=== PATIENT | male | born 1995 | race Caucasian/White ===

== ENCOUNTER 2016-12-13 20:40 | Emergency (ER) | payer BC ==
[~2016-12-13] VITALS: Ht 182.9 cm; Wt 84.0 kg
[2016-12-13 20:49] VITALS: TEMP 36.7; Ht 182.9 cm; Wt 84.0 kg
[2016-12-13] MEDS ORDERED: DOXY-300 PO (21:07)
--- NOTE | 2016-12-13 21:11 | DIAGNOSTIC IMAGING REPORT ---
RIGHT ANKLE MIN 3 VIEWS ROUTINE CLINICAL HISTORY: Lateral right ankle pain following basketball injury. COMPARISON: None FINDINGS: Alignment of the right ankle is anatomic. No definite acute fracture is present. There is moderate lateral ankle soft tissue swelling. There is no ankle mortise widening. 3 mm ossific density along the fibular tip is probably old. A small density overlying the dorsal aspect of the navicular is likely old as well. There is a tiny ossific density along the lateral aspect the medial malleolus which is age-indeterminate. IMPRESSION: 1. No definite acute fracture. A few tiny avulsed bone fragments. While age indeterminate, these are likely old. 2. Moderate lateral ankle soft tissue swelling. Electronically signed by: Adan Maciel M.D. 12/13/2016 9:09 PM Dictated Date/Time: 12/13/2016 9:07 PM
[2016-12-13 21:22] VITALS: BP 124/71; PULSE 87; O2SAT 98
--- NOTE | 2016-12-14 01:07 | EMERGENCY ROOM VISIT NOTE ---
ED Visit Note First contact with patient: 20:44 CHIEF COMPLAINT: Right ankle pain. HISTORY OF PRESENT ILLNESS: Mr. Thomas is a 21-year old white male who ambulates into the ED complaining of right lateral ankle pain. He reports approximately 2 hours ago he was playing basketball when he went up into the air and when he landed he landed on another layer's foot and rolled his right ankle. He reports since that time he has had moderate pain over the lateral aspect of the ankle and he has had difficulty walking. He is currently complaining of constant sharp pain over the lateral malleolus and the ligamentous structures inferior and posterior to the malleolus. He rates the pain a 8/10. Pain is nonradiating. Pain increases with weightbearing, ambulation and inversion. He has mild relief of his discomfort when he has not weightbearing. He has treated the pain with ice and ibuprofen prior to arrival at the hospital and has had no relief of pain. Associated with the pain is moderate swelling over the lateral ankle. He denies any associated hip or knee pain, medial ankle pain, foot pain, foot/ lower leg weakness/numbness/tingling. Additionally he does report he's had previous sprains/strains of the ankle but no fractures. REVIEW OF SYSTEMS: As noted above in History of Present Illness. PAST MEDICAL HISTORY: Patient denies. CURRENT MEDICATIONS: Doxycycline. ALLERGIES TO MEDICATIONS: Patient denies. SOCIAL HISTORY: Patient is currently in University student; he feels safe in his home environment; he denies tobacco use. PHYSICAL EXAM: Vital Signs: Date Time Temp Pulse Resp B/P Pulse Ox O2 Delivery O2 Flow Rate FiO2 12/13/16 21:22 87 18 124/71 98 12/13/16 20:49 36.7 93 18 132/68 97 Room Air General: 21 year old male in mild distress due to pain, nontoxic-appearing, afebrile and hemodynamically stable. Neurological: Awake, alert, oriented to person place and time. Answering questions appropriately and following commands. Skin: Warm dry and pink. No soft tissue injuries. Right Lower Extremity: No gross danica deformities. No tenderness in the hip or knee. Tenderness over the lateral malleolus and the surrounding ligamentous structures with moderate swelling but no bony deformity, bony crepitus or ecchymosis. No laxity on ligamentous testing. Throughout the foot the skin is pink and warm with brisk capillary refill. Able to distinguish light sensations through all dermatomes of the foot. ED COURSE: Patient is assessed as noted above. Right Ankle X-Rays: Was read by myself and shows no acute fractures or dislocations. Previous avulsion fractures were noted. Patient is given ice for pain, swelling and comfort; he was offered pain medications and refused.. Patient is placed in a gel splint and is instructed on crutch use. Patient is educated about his condition and instructed on his treatment plan; he verbalizes understanding and agreement with the our plan. CLINICAL IMPRESSION: Right ankle sprain. DISPOSITION: Patient is discharged to home in stable condition accompanied by friends; prior to departure he was reassessed and subjectively reported he was feeling better and rated his discomfort 2/10. PLAN: Comfort measures were discussed with the patient. Patient was encouraged to follow-up with an orthopedic physician if no better in 7 to 10 days. Patient was encouraged to return emergency department as needed for increasing pain or swelling, leg/foot weakness/numbness/tingling or any new/concerning symptoms.
== END 2016-12-13 21:28 | disposition home or self-care (01) ==
LOC: C.EDB 20:42 → C.EDD 21:28
DX: S93.491A Sprain of other ligament of right ankle, initial encounter (principal); X58.XXXA Exposure to other specified factors, initial encounter; Y93.67 Activity, basketball; Y92.310 Basketball court as the place of occurrence of the external cause; Y99.8 Other external cause status

== ENCOUNTER → 2016-12-22 | Outpatient (CLI) | payer BC ==
[~2016-12-22] MED LIST: DOXY-300 PO
--- NOTE | 2016-12-23 17:06 | DIAGNOSTIC IMAGING REPORT ---
LEFT ANKLE MRI HISTORY: Left ANKLE Weakness, lt KNEE Pain, peroneal NERVE COMP TECHNIQUE: Multiplanar multisequence MRI of the left ankle was performed without the use of intravenous contrast. COMPARISON STUDY: None. FINDINGS: No fracture or dislocation within the left ankle. Mild marrow edema along the medial malleolus. Mild nonspecific edema within the visualized flexor hallucis longus and extensor digitorum muscles. The flexor, extensor, peroneal, and Achilles tendon are normal in course, caliber, and signal intensity. No significant joint effusion. The sinus tarsi is intact. Plantar fascia is maintained. The anterior talofibular ligament is not identified and is likely chronically torn. The calcaneofibular ligament is not clearly identified and may also be torn. The posterior talofibular ligaments remain intact. There is no adjacent edema to suggest an acute injury. There is also thickening of the medial stabilizing ligaments of the ankle consistent with a chronic partial tear. IMPRESSION: 1. Mild edema within the visualized flexor hallucis longus and extensor digitorum muscles. This is nonspecific and could be due to a grade I muscular strain or denervation injury. 2. 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 3. Mild marrow edema within the medial malleolus without underlying fracture. This could also be due to chronic/repetitive injury. Electronically signed by: Giles Alvarez M.D. 12/23/2016 5:05 PM Dictated Date/Time: 12/22/2016 10:04 PM
--- NOTE | 2016-12-23 17:21 | DIAGNOSTIC IMAGING REPORT ---
LEFT KNEE MRI HISTORY: Left knee pain. Peroneal nerve compression. Foot drop. COMPARISON STUDY: None. TECHNIQUE: Multiplanar multisequence MRI of the left knee was performed according to standard department protocol without the use of contrast. FINDINGS: Menisci: The medial and lateral menisci are intact. Ligaments: The anterior and posterior cruciate ligaments are intact. The medial and lateral collateral ligaments are normal in appearance. Extensor mechanism: The quadriceps tendon and patellar ligament are intact. Articular cartilage and bone: The articular cartilage is intact, and normal marrow signal intensity is seen throughout the imaged osseous structures. Joint effusion: None. Soft tissues: There is mild edema within the proximal anterolateral compartment muscles of the lower leg. There are no masses or fluid collections along the lateral aspect of the knee and especially location of the peroneal nerve pathway. No fractures within the proximal fibula. IMPRESSION: Mild edema within the proximal anterolateral compartment muscles of the left lower leg. This is nonspecific and could be due to a grade I muscular injury or denervation injury. No masses or fluid collections along the expected peroneal nerve pathway. Electronically signed by: Giles Alvarez M.D. 12/23/2016 5:19 PM Dictated Date/Time: 12/22/2016 10:03 PM
== END | disposition home or self-care (01) ==
LOC: C.MRI 18:02
PROVIDERS: ATTEND Physical Medicine & Rehabilitation
DX: G57.32 Lesion of lateral popliteal nerve, left lower limb (principal); R60.0 Localized edema

== ENCOUNTER → 2017-10-27 | Outpatient (CLI) | payer BC ==
[2017-10-27 16:33] LABS: BASO % 0.7 %; BASO ABS # 0.05 K/uL (0-0.2); EOS % 2.6 %; EOS ABS # 0.18 K/uL (0-0.5); HEMATOCRIT 43.2 % (42-52); HEMOGLOBIN 14.3 g/dL (14.0-18.0); IG# 0.03 K/uL (0.00-0.02); LYMPH % 46.4 %; LYMPH ABS # 3.19 K/uL (1.2-3.4); MEAN CELL VOLUME 87.1 fL (80-100); MEAN CORPUSCULAR HEMOGLOBIN 28.8 pg (25-34); MEAN CORPUSCULAR HGB CONC 33.1 g/dl (32-36); MEAN PLATELET VOLUME 9.6 fL (7.4-10.4); MONO % 9.6 %; MONO ABS # 0.66 K/uL (0.11-0.59); NEUT % 40.3 %; NEUT ABS # 2.76 K/uL (1.4-6.5); PLATELET COUNT 268 K/uL (130-400); RED CELL DISTRIBUTION WIDTH CV 13.4 % (11.5-14.5); RED CELL DISTRIBUTION WIDTH SD 42.8 fL (36.4-46.3); WHITE BLOOD COUNT 6.87 K/uL (4.8-10.8)
[2017-10-27 16:59] LABS: BLOOD UREA NITROGEN 20 mg/dl (7-18); CALCIUM 8.8 mg/dl (8.5-10.1); CARBON DIOXIDE 30 mmol/L (21-32); CREATININE 0.87 mg/dl (0.60-1.40); GLUCOSE 75 mg/dl (70-99); POTASSIUM 4.1 mmol/L (3.5-5.1); SODIUM 138 mmol/L (136-145)
== END | disposition home or self-care (01) ==
LOC: C.LAB1850 15:06
PROVIDERS: ATTEND Urology
DX: Z01.818 Encounter for other preprocedural examination (principal); N13.39 Other hydronephrosis